=== PATIENT | female | born 1990 | race Caucasian/White ===

== ENCOUNTER 2022-01-15 17:40 | Observation (INO) | payer OTHER ==
[2022-01-15 18:33] LABS: HGB 10.2 gm/dL (11.4-16.0); MCH 27.2 pg (25.0-35.0); MCHC 31.9 g/dL (31.0-37.0); MCV 85.2 fL (80.0-100.0); Mean Platelet Volume 7.7; Platelet Count 400 k/uL (150-450); RBC 3.76 m/uL (3.80-5.40); RDW 13.5 % (11.5-15.5); WBC 15.5 k/uL (3.8-10.6)
[2022-01-15 18:38] LABS: ALT 14 U/L (4-34); AST 21 U/L (14-36); African American GFR (CKD) >90 (>60 ml/min/1.73 sqM); Albumin 3.5 g/dL (3.5-5.0); Alkaline Phosphatase 180 U/L (38-126); Anion Gap 14 mmol/L; Blood Urea Nitrogen 3 mg/dL (7-17); Calcium 8.5 mg/dL (8.4-10.2); Carbon Dioxide 17 mmol/L (22-30); Chloride 101 mmol/L (98-107); Glucose 117 mg/dL (74-99); Non-African American GFR(CKD) >90 (>60 ml/min/1.73 sqM); Potassium 2.9 mmol/L (3.5-5.1); Sodium 132 mmol/L (137-145); Total Bilirubin 0.3 mg/dL (0.2-1.3); Total Protein 6.6 g/dL (6.3-8.2)
--- NOTE | 2022-01-15 19:01 | P.HPOB ---
History of Present Illness H&P Date: 01/15/22 Chief Complaint: Left flank pain. This patient is a 31-year-old 7 para 1 female estimated date of confinement 02/28/2022 estimated gestational age 33-5/7 weeks who presents to triage with complaints of sudden onset of left flank pain earlier today. Patient denies any vaginal bleeding or leaking of fluid. She denies any regular contractions. Patient was just in the office approximately 2 days ago and seen Dr. Hunt at that time was only complaining of headaches. Urinalysis looked negative Sunday. Patient's also complicated by tobacco use/vaping. It appears that she transferred to Dr. Hunt at [address] Baca. Review of Systems Genitourinary: Reports as per HPI, Reports pelvic pain, Reports Menstruation: Reports amenorrhea Past Medical History Additional Past Medical History / Comment(s): Patient's had 1 term vaginal delivery and approximately 5 spontaneous abortions. History of Any Multi-Drug Resistant Organisms: None Reported Additional Past Surgical History / Comment(s): Oral surgery. Dilation and curettage. Past Psychological History: No Psychological Hx Reported Smoking Status: Current some day smoker, Vaper Past Alcohol Use History: None Reported Medications and Allergies Home Medications Medication Instructions Recorded Confirmed Type Famotidine 20 mg PO DAILY 01/15/22 01/15/22 History Pantoprazole Sodium [Protonix] 20 mg PO BID 01/15/22 01/15/22 History Vit No.179/Iron/Folic 1 each PO DAILY 01/15/22 01/15/22 History [ Tablet] Allergies Allergy/AdvReac Type Severity Reaction Status Date / Time No Known Allergies Allergy Verified 01/15/22 17:59 Exam Intake and Output 01/15/22 01/15/22 01/15/22 06:59 14:59 22:59 Other: Weight 85.729 kg - OBG Physical Exam Abdomen: bowel sounds normal, no diffuse tenderness, no bruit present, no guarding noted, no hepatomegaly, no splenomegaly, no mass Vulva: both: normal Vagina: normal moisture, no discharge Cervix: no lesion (Cervix is 1 and thick per the RN.), no discharge Uterus: enlarged Results Result Diagrams: 01/15/22 17:50 01/15/22 17:50 Abnormal Lab Results - Last 24 Hours (Table) 01/15/22 01/15/22 Range/Units 17:50 17:50 WBC 15.5 H (3.8-10.6) k/uL RBC 3.76 L (3.80-5.40) m/uL Hgb 10.2 L (11.4-16.0) gm/dL Hct 32.0 L (34.0-46.0) % Sodium 132 L (137-145) mmol/L Potassium 2.9 L (3.5-5.1) mmol/L Carbon Dioxide 17 L (22-30) mmol/L BUN 3 L (7-17) mg/dL Glucose 117 H (74-99) mg/dL Alkaline Phosphatase 180 H (38-126) U/L Assessment and Plan Assessment: This is a 31-year-old 7 para 1 female 33-5/7 weeks' gestation with fairly acute onset of left-sided flank pain. heart tones are reassuring and she is not having regular contractions therefore this is most consistent with some type of kidney etiology, renal stones. Patient appears to be quite uncomfortable per the RN therefore they're going to admit her for IV hydration, IV pain control, check a CBC and metabolic panel, complete obstetrical ultrasou nd, and renal ultrasound. (1) 33 weeks gestation of Current Visit: Yes Status: Acute Code(s): Z3A.33 - 33 WEEKS GESTATION OF SNOMED Code(s): 33465914 (2) Flank pain Current Visit: Yes Status: Acute Code(s): R10.9 - UNSPECIFIED ABDOMINAL PAIN SNOMED Code(s): 443693630
[2022-01-15 19:03] LABS: Appearance,Urine Cloudy (Clear); Bacteria,Urine Moderate /hpf; Bilirubin,Urine Negative (Negative); Blood,Urine Small (Negative); Color,Urine Yellow; Glucose,Urine (UA) Trace (Negative); Ketones,Urine Negative (Negative); Leukocyte Esterase,Urine Moderate (Negative); Mucus,Urine Many /hpf; Nitrite,Urine Negative (Negative); PH, Urine 6.5 (5.0-8.0); Protein,Urine 3+ (Negative); RBC,Urine 44 /hpf (0-5); Specific Gravity,Urine 1.023 (1.001-1.035); Squamous Epithelial Cell,Urine 3 /hpf (0-4); Urobilinogen,Urine <2.0 mg/dL (<2.0); WBC,Urine 25 /hpf (0-5)
[2022-01-15] MEDS: LACTATED RINGERS 1,000 ML IV SCH ×3 (19:27→20:00)
--- NOTE | 2022-01-15 19:54 | US ---
EXAMINATION TYPE: US kidneys/renal and bladder DATE OF EXAM: 01/15/2022 COMPARISON: NONE CLINICAL HISTORY: upper abd discomfort with pain radiating around th. Upper left abdominal discomfort , radiates to the left side- back. Pain since 1 pm today. Hx frequent UTIs. *Patient is 33 5/7 weeks . EXAM MEASUREMENTS: Right Kidney: 10.8 x 5.5 x 6.0 cm Left Kidney: 9.1 x 4.4 4.8 cm Exam is limited due to gas. Right Kidney: No hydronephrosis or masses seen Left Kidney: Contour appears irregular. Limited visibility of borders. Bladder: Undistended, unable to evaluate. Bilateral Jets seen: No IMPRESSION: No evidence of renal mass or obstruction. Urinary bladder not seen.
--- NOTE | 2022-01-15 19:57 | US ---
EXAMINATION TYPE: US OB >= 14 wk fetus DATE OF EXAM: 01/15/2022 COMPARISON: None CLINICAL HISTORY: c/o upper abd discomfort that radiates to the back Left sided pain/back pain since 1 pm. Hx 4 miscarriages. . TECHNIQUE: Transabdominal (TA) GESTATIONAL AGE / DATING Physician Established: (33 weeks/5 days) EDC: 02/28/2022 Dates by LMP: Unknown Dates by First Scan: This is first scan here. Dates by Current Scan: (32 weeks/4 days) EDC: 03/08/2022 SURVEY IUP: Single PLACENTA: Posterior-Fundal PREVIA: No Previa seen CYN: 19.9 cm. Measures above hospital standards: 10-18 cm. Patient requested to end exam before a second measurement could be performed. CERVICAL LENGTH (transabdominal: norm > 3.0cm): Unable to visualize. No transvaginal cervical length needed per Dr. Hinkle. BIOMETRY PRESENTATION: Vertex BPD: 8.21 cm 33 weeks / 0 days HC: 29.53 cm 32 weeks / 4 days AC: 29.64 cm 33 weeks / 4 days FL: 6.33 cm 32 weeks / 5 days ESTIMATED WEIGHT IN GRAMS: 2144 grams ESTIMATED WEIGHT IN LBS/OZ: 4 lbs. 12 oz. WEIGHT PERCENTAGE BASED ON ESTABLISHED DATES: 27.9% HC/AC: 1.00 Normal FL/AC: 21.37 Normal HEART RATE: 140 bpm RHYTHM: Normal IMPRESSION: The ultrasound gestational age is 32 weeks and 4 days. The NIMESH is 03/08/2022. No complicating process seen.
[2022-01-15] MEDS: BUTORPHANOL 1 MG/ML 1 ML VIAL IV PRN ×2 (20:01→22:54)
[2022-01-15] MEDS: ONDANSETRON 4 MG/2 ML VIAL IVP PRN (20:25)
[2022-01-15] MEDS: FAMOTIDINE 20 MG TAB PO SCH (20:58)
[2022-01-15] MEDS: POTASSIUM CHLORIDE ER 20 MEQ TAB.ER PO SCH (20:58)
[2022-01-16] MEDS: BUTORPHANOL 1 MG/ML 1 ML VIAL IV PRN ×8 (01:49→23:32)
[2022-01-16] MEDS: ONDANSETRON 4 MG/2 ML VIAL IVP PRN ×3 (02:11→22:28)
[2022-01-16] MEDS: LACTATED RINGERS 1,000 ML IV SCH ×4 (04:19→20:02)
[2022-01-16 06:41] LABS: Basophils % (A) 0 %; Eosinophils % (A) 0 %; HCT 29.9 % (34.0-46.0); HGB 9.8 gm/dL (11.4-16.0); Lymphocytes # (A) 2.1 k/uL (1.0-4.8); Lymphocytes % (A) 15 %; MCH 27.7 pg (25.0-35.0); MCHC 32.7 g/dL (31.0-37.0); MCV 84.6 fL (80.0-100.0); Mean Platelet Volume 7.4; Monocytes # (A) 0.6 k/uL (0-1.0); Monocytes % (A) 5 %; Neutrophils # (A) 10.9 k/uL (1.3-7.7); Neutrophils % (A) 79 %; Platelet Count 369 k/uL (150-450); RBC 3.53 m/uL (3.80-5.40); RDW 13.4 % (11.5-15.5); WBC 13.8 k/uL (3.8-10.6)
[2022-01-16 07:01] LABS: ALT 12 U/L (4-34); AST 16 U/L (14-36); African American GFR (CKD) >90 (>60 ml/min/1.73 sqM); Albumin 3.1 g/dL (3.5-5.0); Alkaline Phosphatase 161 U/L (38-126); Anion Gap 9 mmol/L; Blood Urea Nitrogen 4 mg/dL (7-17); Calcium 8.1 mg/dL (8.4-10.2); Carbon Dioxide 25 mmol/L (22-30); Chloride 101 mmol/L (98-107); Glucose 129 mg/dL (74-99); Non-African American GFR(CKD) >90 (>60 ml/min/1.73 sqM); Potassium 3.3 mmol/L (3.5-5.1); Sodium 135 mmol/L (137-145); Total Bilirubin 0.3 mg/dL (0.2-1.3); Total Protein 5.8 g/dL (6.3-8.2)
--- NOTE | 2022-01-16 08:21 | P.PN ---
Progress Note - Text Progress Note Date: 01/16/22 31 year old at 33 weeks 6 days complaining of left flank pain and an elevated wbc. NST reactive no contractions afebrile PT has had N/V most the night and heart burn. will resume home meds of protonix today, replace potassium and give IV fluids and IV antibiotics.
[2022-01-16] MEDS ORDERED: HYDROcodone/APAP 5-325MG 1 EACH TAB PO PRN (09:02)
[2022-01-16] MEDS: PANTOPRAZOLE 40 MG TABLET PO SCH ×2 (09:08→20:01)
[2022-01-16] MEDS ORDERED: FAMOTIDINE 20 MG/2 ML VIAL IV ONE ×2 (12:00→12:15)
[2022-01-16] MEDS ORDERED: MAGNESIUM HYDROXIDE 2,400 MG/10 ML CUP PO PRN (12:16)
[2022-01-16] MEDS: POTASSIUM CHLORIDE 20 MEQ in WATER FOR INJECTION 1 100ML.BAG IVPB SCH (12:47)
[2022-01-16] MEDS: METOCLOPRAMIDE 5 MG/ML 2 ML VIAL IVP SCH ×2 (12:48→19:11)
[2022-01-16] MEDS: POTASSIUM CHLORIDE ER 20 MEQ TAB.ER PO SCH (14:50)
[2022-01-16] MEDS: FAMOTIDINE 20 MG TAB PO SCH (17:41)
[2022-01-16] MEDS ORDERED: FAMOTIDINE 20 MG/2 ML VIAL IV SCH (21:00)
[2022-01-17] MEDS: POTASSIUM CHLORIDE 20 MEQ in WATER FOR INJECTION 1 100ML.BAG IVPB SCH ×2 (01:13→13:10)
[2022-01-17] MEDS: METOCLOPRAMIDE 5 MG/ML 2 ML VIAL IVP SCH ×3 (03:02→09:55)
[2022-01-17] MEDS: BUTORPHANOL 1 MG/ML 1 ML VIAL IV PRN ×2 (03:03→06:42)
[2022-01-17] MEDS: LACTATED RINGERS 1,000 ML IV SCH ×2 (06:41→07:58)
[2022-01-17] MEDS: ONDANSETRON 4 MG/2 ML VIAL IVP PRN (06:41)
[2022-01-17] MEDS: PANTOPRAZOLE 40 MG TABLET PO SCH (08:15)
--- NOTE | 2022-01-17 08:16 | P.PN ---
Progress Note - Text Progress Note Date: 01/17/22 31 yo G 6 P1 at 34 weeks with left flank pain. Pain is still present but she has not tried oral pain medications yet. patient is now tolerating clears. She has not vomited since last night. Encouraged her to try oral pain medications. If she cannot tolerate them, I will give her IV 04 minutes. She thinks her pain now has to do with some musculoskeletal irritation as well as the pyelonephritis. Microbiology came back with gram-negative bacilli. She is on IV cefazolin which should cover this. I will check on her again later today to see if she is tolerating a regular diet. If this is the case she may be able to go home later today. CBC and repeat potassium pending
[2022-01-17 09:04] LABS: Basophils % (A) 0 %; Eosinophils % (A) 0 %; HCT 28.4 % (34.0-46.0); HGB 9.2 gm/dL (11.4-16.0); Hypochromasia Slight; Lymphocytes # (A) 1.9 k/uL (1.0-4.8); Lymphocytes % (A) 15 %; MCH 27.8 pg (25.0-35.0); MCHC 32.4 g/dL (31.0-37.0); Mean Platelet Volume 7.4; Monocytes # (A) 0.7 k/uL (0-1.0); Monocytes % (A) 6 %; Neutrophils # (A) 9.7 k/uL (1.3-7.7); Neutrophils % (A) 78 %; Platelet Count 318 k/uL (150-450); RDW 13.4 % (11.5-15.5); WBC 12.5 k/uL (3.8-10.6)
[2022-01-17 09:15] LABS: Potassium 3.4 mmol/L (3.5-5.1)
[2022-01-17] MEDS ORDERED: ACETAMINOPHEN TAB 500 MG TAB PO PRN (09:45)
[2022-01-17 09:51] VITALS: BP 120/67; PULSE 98; RESP 18; TEMP 96.6
--- NOTE | 2022-01-17 12:33 | P.DS ---
Providers Date of admission: 01/15/22 18:53 Expected date of discharge: 01/17/22 Attending physician: Valeria Hunt Primary care physician: Lewis Hinkle - Discharge Diagnosis(es) (1) 34 weeks gestation of Current Visit: Yes Status: Acute (2) Pyelonephritis Current Visit: Yes Status: Acute Hospital Course: She presented with horrible left upper quadrant pain and left flank pain. She is admitted for pain control and IV antibiotics. She did have a white blood cell count but no fever. Urine culture grew out gram-negative bacilli. She was also unable to tolerate food for over 24 hours while she was here. We did treat the nausea, IV antibiotics for the pyelonephritis that was found in her urine, IV fluids and NSTs. She'll be discharged home now after over 24 hours of IV antibiotics. Her potassium has been replaced, and her white blood cell count is decreasing. She remains afebrile and will go home with oral antibiotics and some pain medication. She is to follow up with me in about a week and a half. Plan - Discharge Summary New Discharge Prescriptions: New RX: HYDROcodone/APAP 5-325MG [Bradley 5-325] 1 each PO Q4HR PRN #18 tab PRN Reason: Pain Cephalexin [Keflex] 500 mg PO Q6HR 5 Days #20 cap No Action RX: Famotidine 20 mg PO DAILY Vit No.179/Iron/Folic [ Tablet] 1 each PO DAILY Pantoprazole Sodium [Protonix] 20 mg PO BID Discharge Medication List Pantoprazole Sodium [Protonix] 20 mg PO BID 01/15/22 [History] Vit No.179/Iron/Folic [ Tablet] 1 each PO DAILY 01/15/22 [History] RX: Famotidine 20 mg PO DAILY 01/15/22 [History] Cephalexin [Keflex] 500 mg PO Q6HR 5 Days #20 cap 01/17/22 [Rx] RX: HYDROcodone/APAP 5-325MG [Bradley 5-325] 1 each PO Q4HR PRN #18 tab 01/17/22 [Rx] Follow up Appointment(s)/Referral(s): Valeria Hunt DO [Doctor of Osteopathic Medicine] - 2 Weeks Discharge Disposition: HOME SELF-CARE
== END 2022-01-17 13:08 | disposition home or self-care (01) ==
LOC: FBPOP 17:40 → 4FBP 18:53
PROVIDERS: ADMIT Obstetrics & Gynecology; ATTEND Obstetrics & Gynecology
DX: O23.03 Infections of kidney in pregnancy, third trimester (principal); O99.333 Smoking (tobacco) complicating pregnancy, third trimester; N12 Tubulo-interstitial nephritis, not specified as acute or chronic; F17.290 Nicotine dependence, other tobacco product, uncomplicated; Z87.440 Personal history of urinary (tract) infections; Z3A.32 32 weeks gestation of pregnancy; Z79.899 Other long term (current) drug therapy
CPT/HCPCS: 96376 ×3; 96361 ×2; 96365 ×2; 96366 ×2; 96367 ×2; 96375 ×2; 59025; 96360; 80051; 80053 ×2; 85025 ×2; 85027; 81001; 87086; 87077; 87186; 76805; 76770; G0378 ×3; G0463; J2765 ×2; J0595 ×3; J3480 ×2; J0690 ×3; J2405 ×3; 99213

== ENCOUNTER 2022-02-12 22:08 | Inpatient (IN) | payer BC, OTHER ==
[2022-02-12] MEDS ORDERED: CARBOPROST TROMETHAMINE 250 MCG/ML 1 ML AMP IM PRN (22:40)
[2022-02-12] MEDS ORDERED: TERBUTALINE 1 MG/ML VIAL SQ PRN (22:40)
[2022-02-12] MEDS ORDERED: METHYLERGONOVINE 0.2 MG/ML 1 ML AMP IM PRN (22:40)
[2022-02-12] MEDS ORDERED: OXYTOCIN 10 UNIT/ML 1 ML VIAL IM PRN (22:40)
[2022-02-12] MEDS: LACTATED RINGERS 1,000 ML IV SCH (22:40)
[2022-02-12] MEDS ORDERED: LIDOCAINE 0.5% (PF) 5 MG/ML (50 ML SDV) SQ PRN (22:40)
[2022-02-12 22:55] LABS: Basophils % (A) 0 %; Eosinophils % (A) 0 %; HCT 29.3 % (34.0-46.0); HGB 9.8 gm/dL (11.4-16.0); Hypochromasia Slight; Lymphocytes # (A) 2.8 k/uL (1.0-4.8); Lymphocytes % (A) 23 %; MCH 27.3 pg (25.0-35.0); MCHC 33.4 g/dL (31.0-37.0); MCV 81.9 fL (80.0-100.0); Mean Platelet Volume 8.4; Monocytes # (A) 0.5 k/uL (0-1.0); Monocytes % (A) 4 %; Neutrophils # (A) 8.2 k/uL (1.3-7.7); Neutrophils % (A) 70 %; Platelet Count 280 k/uL (150-450); RBC 3.57 m/uL (3.80-5.40); RDW 14.5 % (11.5-15.5); WBC 11.8 k/uL (3.8-10.6)
[2022-02-12] MEDS ORDERED: SODIUM CHLORIDE 0.9% 100 ML BAG ONE (23:40)
[2022-02-12] MEDS ORDERED: fentaNYL (PF) 50 MCG/ML 5 ML AMP ONE (23:40)
[2022-02-12] MEDS ORDERED: ROPIVACAINE 5 MG/ML 20 ML AMPULE ONE (23:40)
[2022-02-13] MEDS ORDERED: OXYTOCIN 30 UNITS/500 ML NS 30 UNIT in SALINE 1 500ML.BAG IV SCH ×2 (01:00→06:29)
--- NOTE | 2022-02-13 01:22 | P.HPOB ---
History of Present Illness H&P Date: 02/13/22 Chief Complaint: Spontaneous rupture of membranes This is a 31-year-old female 7 para 1 with an estimated date of confinement of 02/28/2022, estimated gestational age of 37-4/7 weeks, who presented to labor and delivery with complaints of contractions that began shor tly after spontaneous rupture of membranes at approximately 9:30 PM tonight. Her care has been with Dr. Hunt and prior to that with Dr. Mary. She states her has been uncomplicated other than a few weeks ago she had a bad E. coli infection and was hospitalized for about 3 days. labs: Group B streptococcus-negative One hour Glucola-141; three-hour Glucola-within normal limits Blood type-O+ Antibody screen-negative Hemoglobin-13 RPR-nonreactive Hepatitis B surface antigen-negative Rubella-immune Hepatitis C-negative Random glucose-81 Maternity 21-normal Obstetrical history: . History of 1 vaginal delivery at term. 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 Review of Systems Constitutional: Denies chills, Denies fever Eyes: denies blurred vision, denies pain Ears, nose, mouth and throat: Denies headache, Denies sore throat Cardiovascular: Denies chest pain, Denies shortness of breath Respiratory: Denies cough Gastrointestinal: Reports abdominal pain (Contractions), Reports heartburn Genitourinary: Reports pelvic pain, Reports Musculoskeletal: Reports low back pain Integumentary: Denies pruritus, Denies rash Neurological: Denies numbness, Denies weakness Psychiatric: Denies anxiety, Denies depression Past Medical History Past Medical History: GERD/Reflux History of Any Multi-Drug Resistant Organisms: None Reported Additional Past Surgical History / Comment(s): Oral surgery. Dilation and curettage. Past Anesthesia/Blood Transfusion Reactions: No Reported Reaction Past Psychological History: No Psychological Hx Reported Smoking Status: Current some day smoker, Vaper Past Alcohol Use History: None Reported Past Drug Use History: None Reported - Past Family History Mother Family Medical History: Cancer (Breast cancer) Father Family Medical History: Hypertension, Myocardial Infarction ([place]) Medications and Allergies Home Medications Medication Instructions Recorded Confirmed Type Famotidine 20 mg PO DAILY 01/15/22 01/15/22 History Pantoprazole Sodium [Protonix] 20 mg PO BID 01/15/22 01/15/22 History Vit No.179/Iron/Folic 1 each PO DAILY 01/15/22 01/15/22 History [ Tablet] Allergies Allergy/AdvReac Type Severity Reaction Status Date / Time tomato Allergy Rash/Hives Verified 02/12/22 22:20 Exam Osteopathic Statement: *. No significant issues noted on an osteopathic structural exam other than those noted in the History and Physical/Consult. Intake and Output 02/12/22 02/12/22 02/13/22 14:59 22:59 06:59 Other: Weight 87.543 kg HEENT: Within normal limits Heart: Regular rate and rhythm Lungs: Clear to auscultation bilaterally Abdomen: Cervix: On admission was 4-1/2 cm/80%/-2 station with positive amnisure with clear fluid noted. heart tones: Category 1 Contractions: Every 2 minutes Extremities: Negative Homans Results Result Diagrams: 02/12/22 22:40 Abnormal Lab Results - Last 24 Hours (Table) 02/12/22 Range/Units 22:40 WBC 11.8 H (3.8-10.6) k/uL RBC 3.57 L (3.80-5.40) m/uL Hgb 9.8 L (11.4-16.0) gm/dL Hct 29.3 L (34.0-46.0) % Neutrophils # 8.2 H (1.3-7.7) k/uL Assessment and Plan (1) 37 weeks gestation of Current Visit: Yes Status: Acute Code(s): Z3A.37 - 37 WEEKS GESTATION OF SNOMED Code(s): 32000095 Plan: Admission for early active labor. Expectant management. Epidural anesthesia if desired. Oxytocin augmentation of labor if necessary.
--- NOTE | 2022-02-13 03:45 | P.PROBDLV ---
Vaginal Delivery Note - . Vaginal Delivery Note: The patient progressed to complete dilation after oxytocin augmentation of labor and epidural anesthesia. Once reaching complete, she pushed for a couple pushes and infant's head came to a crown. With one further push, the infant's head delivered across the perineum followed by the anterior shoulder and the remainder the was placed on mother's abdomen. Cord was clamped and cut and was taken to warmer for evaluation. A viable female infant is noted with scores of 8 at 1 minute and 9 at 5 minutes and infant weight of 6 pounds 7.7 ounces. Placenta delivered shortly thereafter, intact, with a three- vessel cord. Uterus contracted fairly well after oxytocin was given and uterine massage was carried out. Inspection of the perineum revealed a small first- degree perineal laceration. This area was anesthetized with 1% lidocaine and then sutured with 3-0 Vicryl suture in a running locked fashion. Estimated blood loss is approximately 150 mL's. Both mother and infant are in stable condition.
[2022-02-13] MEDS ORDERED: BENZOCAINE/MENTHOL SPRAY 1 GM/SPRAY AEROSOL TOPICAL PRN ×2 (04:35→06:29)
[2022-02-13] MEDS: LACTATED RINGERS 1,000 ML IV SCH (06:15)
[2022-02-13] MEDS ORDERED: SIMETHICONE 80 MG CHEWABLE PO PRN (06:29)
[2022-02-13] MEDS ORDERED: ACETAMINOPHEN TAB 325 MG TAB PO PRN (06:29)
[2022-02-13] MEDS ORDERED: LANOLIN CREAM 5 GM TUBE TOPICAL PRN (06:29)
[2022-02-13] MEDS ORDERED: diphenhydrAMINE 25 MG CAP PO PRN (06:29)
[2022-02-13] MEDS ORDERED: diphenhydrAMINE 50 MG/ML 1 ML VIAL IVP PRN ×2 (06:29)
[2022-02-13] MEDS ORDERED: diphenhydrAMINE 50 MG CAP PO PRN (06:29)
[2022-02-13] MEDS ORDERED: ZOLPIDEM 5 MG TAB PO PRN (06:29)
[2022-02-13] MEDS ORDERED: HYDROCORTISONE 2.5% RECTAL CREAM 30 GM TUBE RECTAL PRN (06:29)
[2022-02-13] MEDS: IBUPROFEN 600 MG TAB PO PRN ×3 (06:54→20:15)
[2022-02-13] MEDS: SENNOSIDES-DOCUSATE SODIUM 1 EACH TAB PO SCH (09:59)
[2022-02-13] MEDS: PANTOPRAZOLE 40 MG TABLET PO SCH (12:10)
[2022-02-13] MEDS: FAMOTIDINE 20 MG TAB PO SCH (12:10)
[2022-02-13] MEDS: PRENATAL VIT-IRON-FOLIC ACID 1 EACH TABLET PO SCH (12:14)
[2022-02-14] MEDS: SENNOSIDES-DOCUSATE SODIUM 1 EACH TAB PO SCH ×2 (03:51→08:05)
[2022-02-14] MEDS: IBUPROFEN 600 MG TAB PO PRN (03:52)
[2022-02-14 07:53] VITALS: BP 121/83; PULSE 74; RESP 16; TEMP 97.9
[2022-02-14] MEDS: PANTOPRAZOLE 40 MG TABLET PO SCH (08:05)
[2022-02-14] MEDS: FAMOTIDINE 20 MG TAB PO SCH (08:06)
[2022-02-14] MEDS: PRENATAL VIT-IRON-FOLIC ACID 1 EACH TABLET PO SCH (08:06)
--- NOTE | 2022-02-14 08:14 | P.DS ---
Providers Date of admission: 02/12/22 22:08 Expected date of discharge: 02/14/22 Attending physician: Valeria Hunt Primary care physician: Stated None - Discharge Diagnosis(es) (1) Normal vaginal delivery Current Visit: Yes Status: Acute Hospital Course: Patient presented in labor. She had Pitocin augmentation and underwent a normal vaginal delivery. course was uncomplicated. Denies nausea, vomiting, chest pain, shortness of breath or any calf pain. She'll be discharged home day #1 in stable condition to follow-up with me in 6 weeks. Plan - Discharge Summary New Discharge Prescriptions: New Ibuprofen [Motrin] 600 mg PO Q6HR PRN #30 tab PRN Reason: Mild Pain (Scale 1 To 3) No Action Famotidine 20 mg PO DAILY Vit No.179/Iron/Folic [ Tablet] 1 each PO DAILY Pantoprazole Sodium [Protonix] 20 mg PO BID Discharge Medication List Famotidine 20 mg PO DAILY 01/15/22 [History] Pantoprazole Sodium [Protonix] 20 mg PO BID 01/15/22 [History] Vit No.179/Iron/Folic [ Tablet] 1 each PO DAILY 01/15/22 [History] Ibuprofen [Motrin] 600 mg PO Q6HR PRN #30 tab 02/14/22 [Rx] Follow up Appointment(s)/Referral(s): Valeria Hunt DO [Doctor of Osteopathic Medicine] - 03/27/22 3:45 pm Discharge Disposition: HOME SELF-CARE
[2022-02-14 09:12] LABS: Basophils % (A) 0 %; Eosinophils % (A) 0 %; HGB 9.5 gm/dL (11.4-16.0); Hypochromasia Moderate; Lymphocytes # (A) 2.4 k/uL (1.0-4.8); Lymphocytes % (A) 20 %; MCH 27.8 pg (25.0-35.0); MCHC 32.9 g/dL (31.0-37.0); MCV 84.3 fL (80.0-100.0); Mean Platelet Volume 8.3; Monocytes # (A) 0.4 k/uL (0-1.0); Monocytes % (A) 3 %; Neutrophils # (A) 8.8 k/uL (1.3-7.7); Neutrophils % (A) 75 %; Platelet Count 245 k/uL (150-450); RBC 3.44 m/uL (3.80-5.40); RDW 14.3 % (11.5-15.5); WBC 11.6 k/uL (3.8-10.6)
--- NOTE | 2022-02-16 11:04 | P.MSEPDOC ---
Presenting Problems - Arrival Data Date of Arrival on Unit: 02/12/22 Time of Arrival on Unit: 22:08 Mode of Transport: Ambulatory - Complaint OB-Reason for Admission/Chief Complaint: Possible Onset of Labor, Rule Out SROM Comment: Patient arrived and stated that she thinks her water broke at 2130. Patient denies pain, contractions, no blood present. RN on assessment visualizes moderate amount clear fluid present. Patient denies any complications with . Medical History - Information : 7 Para: 1 Term: 1 : 0 Abortions: Spontaneous or Elective: 5 Number of Living Children: 1 - Gestational Age Gestational Age by NIMESH (wks/days): 37 Weeks and 6 Days - History Complications: Smoker Comment: Patient admits to vaping everyday. Review of Systems - Review of Systems Constitutional: No problems Breast: No problems ENT: No problems Cardiovascular: No problems Respiratory: No problems Gastrointestinal: No problems Genitourinary: No problems Musculoskeletal: No problems Neurological: No problems Skin: No problems Vital Signs - Temperature Temperature: 97.9 F Temperature Source: Oral - Pulse Brachial Pulse Rate: 74 Pulse Assessment Method: Automatic Cuff - Respirations Respiratory Rate: 16 Oxygen Delivery Method: Room Air O2 Sat by Pulse Oximetry: 98 - Blood Pressure Right Arm Blood Pressure: 121/83 Blood Pressure Mean: 95 Blood Pressure Source: Automatic Cuff Medical Screen Scoring - Cervical Exam Dilation (cm): 4.5 Effacement (%): 70 Station: -2 Membranes: Ruptured - Uterine Contractions Frequency From (mins): 2 Frequency To (mins): 5 Duration From (seconds): 30 Duration To (seconds): 80 Intensity: Absent Resting: Soft to palpation - Assessment - Baby A Baseline FHR: 130 Heart Rate - NICHD Category: Category I (Normal) NST: Reactive Physician Notification - Physician Notified Physician Notified Date: 02/12/22 Physician Notified Time: 22:38 Physician: Hortencia Casillas Order Received: Yes - Notification Comment Comment: RN spoke with Dr. Casillas via telephone at 2750 02/12/22 Dr. Casillas aware of patient history, FHR, contractions, positive amnisure, GBS status orders to admit patient and patient can have an epidural. or stadol IV. Call Dr. Casillas when patient is a cervical check of 6. Maternal Triage Index - Non-Urgent/Priority 4 Non-Urgent Priority 4: Yes Criteria Met for Priority 4: Patient arrived and stated that she thinks her water broke at 2130. Patient denies pain, contractions, no blood present. Patient denies sexual intercourse in the last 24 hours. RN on assessment visualizes moderate amount clear fluid present. Patient denies any complications with . Amnisure is positive checked by Kwadwo Reese RN and Melissa Hernandez RN. Patient is dialated to 4.5. Patient states that she can not feel contraction when she first arrived. Disposition - Disposition OB Disposition: Admit Discharge Date: 02/14/22 Discharge Time: 10:43 I agree with the RN Medical Screening Exam: Yes Case reviewed; plan agreed upon as documented in EMR&OBIX.: Yes Diagnosis: ENCOUNTER FOR FULL-TERM UNCOMPLICATED DELIVERY
== END 2022-02-14 10:43 | disposition home or self-care (01) | DRG 807 ==
LOC: 4FBP 22:08
PROVIDERS: ADMIT Obstetrics & Gynecology; ATTEND Obstetrics & Gynecology
PROC: 10E0XZZ Delivery of Products of Conception, External Approach (ICD-10-PCS; principal; 2022-02-13)
PROC: 0HQ9XZZ Repair Perineum Skin, External Approach (ICD-10-PCS; 2022-02-13)
PROC: 3E033VJ Introduction of Other Hormone into Peripheral Vein, Percutaneous Approach (ICD-10-PCS; 2022-02-13)
PROC: 4A0HXCZ Measurement of Products of Conception, Cardiac Rate, External Approach (ICD-10-PCS; 2022-02-13)
DX: O42.92 Full-term premature rupture of membranes, unspecified as to length of time between rupture and onset of labor (principal); Z37.0 Single live birth; O70.0 First degree perineal laceration during delivery; F17.290 Nicotine dependence, other tobacco product, uncomplicated; O99.334 Smoking (tobacco) complicating childbirth; Z3A.37 37 weeks gestation of pregnancy; Z79.899 Other long term (current) drug therapy; Z80.3 Family history of malignant neoplasm of breast; Z91.018 Allergy to other foods
CPT/HCPCS: 59025; 84112; 85025; 86850; 86900; 86901; 99213

== ENCOUNTER 2022-08-22 17:08 | Emergency (ER) | payer OTHER ==
[2022-08-22 17:38] VITALS: TEMP 98.2
[2022-08-22 20:20] LABS: Basophils % (A) 0 %; Eosinophils % (A) 0 %; HCT 41.4 % (34.0-46.0); Lymphocytes # (A) 3.1 k/uL (1.0-4.8); Lymphocytes % (A) 26 %; MCH 28.6 pg (25.0-35.0); MCHC 33.8 g/dL (31.0-37.0); MCV 84.6 fL (80.0-100.0); Mean Platelet Volume 7.6; Monocytes # (A) 0.5 k/uL (0-1.0); Monocytes % (A) 4 %; Neutrophils # (A) 8.1 k/uL (1.3-7.7); Neutrophils % (A) 68 %; Platelet Count 417 k/uL (150-450); RDW 13.9 % (11.5-15.5); WBC 11.9 k/uL (3.8-10.6)
[2022-08-22 20:39] LABS: ALT 27 U/L (4-34); African American GFR (CKD) >90 (>60 ml/min/1.73 sqM); Albumin 4.4 g/dL (3.5-5.0); Anion Gap 14 mmol/L; Blood Urea Nitrogen 8 mg/dL (7-17); Calcium 9.5 mg/dL (8.4-10.2); Carbon Dioxide 21 mmol/L (22-30); Chloride 105 mmol/L (98-107); Glucose 90 mg/dL (74-99); Non-African American GFR(CKD) >90 (>60 ml/min/1.73 sqM); Sodium 140 mmol/L (137-145); Total Bilirubin 0.4 mg/dL (0.2-1.3); Total Protein 7.8 g/dL (6.3-8.2)
[2022-08-22 20:53] LABS: HCG,Quantitative Serum 1272.5 mIU/mL
[2022-08-22 20:55] LABS: AST 28 U/L (14-36); Alkaline Phosphatase 121 U/L (38-126); Potassium 4.3 mmol/L (3.5-5.1)
--- NOTE | 2022-08-22 21:26 | US ---
EXAMINATION TYPE: Transabdominal DATE OF EXAM: 08/22/2022 9:13 PM COMPARISON: NONE CLINICAL INDICATION: Female, 31 years old with history of possible retained products; Pt states she h ad an US at an outside facility yesterday that showed demise. Today she started having heavy bl eeding with large clots. Pt states she was around 8 weeks pg. EXAM PERFORMED: Transvaginal (TV) and Transabdominal (TA) EXAM MEASUREMENTS: GESTATIONAL AGE / DATING Dates by First Scan: No previous this is first scan Dates by Current Scan for: No IUP seen at this time MATERNAL ANATOMY Uterus: 10.7 x 6.6 x 5.7cm Right Ovary: 3.3 x 3.0 x 1.6cm Left Ovary: 3.2 x 1.8 x 1.6cm Post CDS / Adnexa: wnl Presence of free fluid: No Presence of corpus luteal cyst: No Presence of subchorionic bleed: No GESTATION / SURVEY CRL: Not seen MSD: Not seen IUP: No IUP seen at this time Beta HcG (if available): 1272 The endometrium is thickened with some vascularity. The cervix appears heterogeneous which is likely blood products. Heterogeneous anteverted uterus. No gestational sac, yolk sac, or pole is seen. Endometrium is abnormally thickened up to 27 mm with surrounding vascularity. No free fluid. Both ovaries are seen. No suspicious extraovarian adnexal masses. IMPRESSION: Ultrasound findings are suggestive of retained products of conception as detailed above a nd suspected clinically.
[2022-08-22] MEDS ORDERED: miSOPROStoL 200 MCG TAB PO STA (21:44)
--- NOTE | 2022-08-22 21:50 | ED ---
Female Urogenital HPI - General Chief complaint: Vaginal Bleeding Stated complaint: Vaginal Bleeding Time Seen by Provider: 08/22/22 18:37 Source: patient Mode of arrival: ambulatory Limitations: no limitations - History of Present Illness Initial comments: This patient is a 31-year-old woman who presents with complaint that she is having pelvic cramping pains and vaginal bleeding. The patient relates that she is , she had thought she may have been about 12 weeks but was seen at another facility having an ultrasound performed that was more suggestive of 8 weeks. The patient states that she was told based on the appearance of toni t ultrasound that she was suspected to be having a miscarriage. Patient comes in tonight because she passed large clot at home and is having bleeding. Patient denies diaphoresis, dyspnea, chest pain, palpitations. MD Complaint: vaginal bleeding, pelvic pain -: hour(s) Location: LLQ, RLQ Radiation: non-radiating Severity: moderate Quality: cramping Consistency: constant Improves with: none Worsens with: none Patient : Yes Associated Symptoms: vaginal bleeding - Related Data Home Medications Medication Instructions Recorded Confirmed Famotidine 20 mg PO DAILY 01/15/22 01/15/22 Pantoprazole Sodium [Protonix] 20 mg PO BID 01/15/22 01/15/22 Vit No.179/Iron/Folic 1 each PO DAILY 01/15/22 01/15/22 [ Tablet] Previous Rx's Medication Instructions Recorded Ibuprofen [Motrin] 600 mg PO Q6HR PRN #30 tab 02/14/22 Allergies Allergy/AdvReac Type Severity Reaction Status Date / Time tomato Allergy Rash/Hives Verified 08/22/22 17:38 Review of Systems ROS Statement: Those systems with pertinent positive or pertinent negative responses have been documented in the HPI. ROS Other: All systems not noted in ROS Statement are negative. Constitutional: Denies: fever, chills, weakness Respiratory: Denies: cough, dyspnea Cardiovascular: Denies: chest pain, palpitations, syncope Gastrointestinal: Reports: as per HPI, abdominal pain. Denies: nausea, vomiting, diarrhea, constipation Genitourinary: Reports: as per HPI, abnormal menses. Denies: dysuria, frequency Musculoskeletal: Denies: back pain Skin: Denies: rash Neurological: Denies: headache, weakness, numbness Past Medical History Past Medical History: GERD/Reflux Additional Past Medical History / Comment(s): Patient's had 1 term vaginal delivery and approximately 5 spontaneous abortions. History of Any Multi-Drug Resistant Organisms: None Reported Additional Past Surgical History / Comment(s): Oral surgery. Dilation and curettage. Past Anesthesia/Blood Transfusion Reactions: No Reported Reaction Past Psychological History: No Psychological Hx Reported Smoking Status: Current every day smoker, Vaper Past Alcohol Use History: None Reported Past Drug Use History: None Reported - Past Family History Mother Family Medical History: Cancer (Breast cancer) Father Family Medical History: Hypertension, Myocardial Infarction ([place]) General Exam Limitations: no limitations General appearance: alert, in no apparent distress Head exam: Present: atraumatic, normocephalic Eye exam: Present: normal appearance. Absent: scleral icterus, conjunctival injection Neck exam: Present: normal inspection Respiratory exam: Present: normal lung sounds bilaterally. Absent: respiratory distress, wheezes, rales, rhonchi, stridor Cardiovascular Exam: Present: regular rate, normal rhythm, normal heart sounds. Absent: systolic murmur, diastolic murmur, rubs, gallop GI/Abdominal exam: Present: soft. Absent: distended, tenderness, guarding, rebound, rigid, mass, pulsatile mass, hernia Extremities exam: Present: normal inspection, normal capillary refill. Absent: pedal edema, calf tenderness Back exam: Present: normal inspection. Absent: CVA tenderness (R), CVA tenderne ss (L) Neurological exam: Present: alert Skin exam: Present: warm, dry, intact, normal color. Absent: rash Course Vital Signs 08/22/22 08/22/22 17:36 22:00 Temperature 98.2 F Pulse Rate 98 88 Respiratory 20 16 Rate Blood Pressure 109/76 109/71 O2 Sat by Pulse 99 99 Oximetry Medical Decision Making - Medical Decision Making This patient is a 31-year-old woman presenting for vaginal bleeding and pelvic cramping. History and physical as well as studies are consistent with miscarriage in process. The ultrasound does show what appear to be some products of conception that still need to pass. The case is discussed with Dr Jo who is the tandem mill operator lead generation marketing manager [employer]. She states that there are 2 options for treating at this point, one would be to give the patient Cytotec 800 g to take and let her go home overnight with expectation she will pass the remainder the products of conception. The other option would be to admit the patient for observation on the OB floor, with further management there. I discussed these options with the patient who states that she would like to take the Cytotec and then she will go home. She does understand she needs to return should there be any increase in pain or bleeding, fevers or chills, any systemic symptoms including but not limited to palpitations, chest pain, dyspnea, diaphoresis, lightheadedness or syncope. Appropriate further care and follow-up discussed. Was pt. sent in by a medical professional or institution (, PA, PSYCHIATRIC CNS, urgent care, hospital, or prison...) When possible be specific @ -[No] Did you speak to anyone other than the patient for history (EMS, parent, family, police, friend...)? What history was obtained from this source @ -[No] Did you review nursing and triage notes (agree or disagree)? Why? @ -[I reviewed and agree with nursing and triage notes] Were old charts reviewed (outside hosp., previous admission, EMS record, old EKG, old radiological studies, urgent care reports/EKG's, prison records)? Report findings @ -[No old charts were reviewed] Differential Diagnosis (chest pain, altered mental status, abdominal pain women, abdominal pain men, vaginal bleeding, weakness, fever, dyspnea, syncope, headache, dizziness, GI bleed, back pain, seizure, CVA, palpatations, mental health, musculoskeletal)? @ -[Differential diagnosis for this patient's vaginal bleeding includes miscarriage, normal implantation of a fertilized ovum into the endometrial lining, ectopic , and subchorionic hemorrhage, among other conditions EKG interpreted by me (3pts min.). @ -[ X-rays interpreted by me (1pt min.). @ -[None done] CT interpreted by me (1pt min.). @ -[None done] U/S interpreted by me (1pt. min.). @ -[None done] What testing was considered but not performed or refused? (CT, X-rays, U/S, labs)? Why? @ -[None] What meds were considered but not given or refused? Why? @ -[None] Did you discuss the management of the patient with other professionals (professionals i.e. , PA, PSYCHIATRIC CNS, lab, RT, psych nurse, 7th grade social studies teacher, nail expert, teacher, physics technical officer, case loader operator)? Give summary @ -[No] Was smoking cessation discussed for >3mins.? @ -[No] Was critical care preformed (if so, how long)? @ -[No] Were there social determinants of health that impacted care today? How? (Homelessness, low income, unemployed, alcoholism, drug addiction, transportation, low edu. Level, literacy, decrease access to med. care, mcc, rehab)? @ -[No] Was there de-escalation of care discussed even if they declined (Discuss DNR or withdrawal of care, Hospice)? DNR status @ -[No] What co-morbidities impacted this encounter? (DM, HTN, Smoking, COPD, CAD, Cancer, CVA, ARF, Chemo, Hep., AIDS, mental health diagnosis, sleep apnea, morbid obesity)? @ -[None] Was patient admitted / discharged? Hospital course, mention meds given and route, prescriptions, significant lab abnormalities, going to OR and other pertinent info. @ -[As above, discharged Undiagnosed new problem with uncertain prognosis? @ -[No] Drug Therapy requiring intensive monitoring for toxicity (Heparin, Nitro, Insulin, Cardizem)? @ -[No] Were any procedures done? @ -[No] Diagnosis/symptom? @ -[Incomplete miscarriage Acute, or Chronic, or Acute on Chronic? @ -[Acute Uncomplicated (without systemic symptoms) or Complicated (systemic symptoms)? @ -[default] Side effects of treatment? @ -[No] Exacerbation, Progression, or Severe Exacerbation? @ -[No] Poses a threat to life or bodily function? How? (Chest pain, [place], [place], pneumonia, PE, COPD, DKA, ARF, appy, cholecystitis, CVA, Diverticulitis, Homicidal, Suicidal, threat to staff... and all critical care pts) @ -[No] - Lab Data Result diagrams: 08/22/22 19:57 08/22/22 19:57 Lab Results 08/22/22 08/22/22 08/22/22 Range/Units 19:57 19:57 19:57 WBC 11.9 H (3.8-10.6) k/uL RBC 4.90 (3.80-5.40) m/uL Hgb 14.0 (11.4-16.0) gm/dL Hct 41.4 (34.0-46.0) % MCV 84.6 (80.0-100.0) fL MCH 28.6 (25.0-35.0) pg MCHC 33.8 (31.0-37.0) g/dL RDW 13.9 (11.5-15.5) % Plt Count 417 (150-450) k/uL MPV 7.6 Neutrophils % 68 % Lymphocytes % 26 % Monocytes % 4 % Eosinophils % 0 % Basophils % 0 % Neutrophils # 8.1 H (1.3-7.7) k/uL Lymphocytes # 3.1 (1.0-4.8) k/uL Monocytes # 0.5 (0-1.0) k/uL Eosinophils # 0.0 (0-0.7) k/uL Basophils # 0.0 (0-0.2) k/uL Sodium 140 (137-145) mmol/L Potassium 4.3 (3.5-5.1) mmol/L Chloride 105 (98-107) mmol/L Carbon Dioxide 21 L (22-30) mmol/L Anion Gap 14 mmol/L BUN 8 (7-17) mg/dL Creatinine 0.70 (0.52-1.04) mg/dL Est GFR (CKD-EPI)AfAm >90 (>60 ml/min/1.73 sqM) Est GFR (CKD-EPI)NonAf >90 (>60 ml/min/1.73 sqM) Glucose 90 (74-99) mg/dL Calcium 9.5 (8.4-10.2) mg/dL Total Bilirubin 0.4 (0.2-1.3) mg/dL AST 28 (14-36) U/L ALT 27 (4-34) U/L Alkaline Phosphatase 121 (38-126) U/L Total Protein 7.8 (6.3-8.2) g/dL Albumin 4.4 (3.5-5.0) g/dL HCG, Quant 1272.5 mIU/mL Blood Type O Positive Blood Type Recheck O Pos Bld Type Recheck Status [facility] ONLY Disposition Clinical Impression: Incomplete Disposition: HOME SELF-CARE Condition: Good Instructions (If sedation given, give patient instructions): Miscarriage (ED) Is patient prescribed a controlled substance at d/c from ED?: No Referrals: None,Stated [Primary Care Provider] - 1-2 days Abigail Jung DO [Doctor of Osteopathic Medicine] - 1-2 days
[2022-08-22] MEDS ORDERED: MORPHINE SULFATE 4 MG/ML SYRINGE IV STA (22:04)
[2022-08-22 22:10] VITALS: BP 109/71; PULSE 88; RESP 16
== END 2022-08-22 23:05 | disposition home or self-care (01) ==
LOC: EC 17:08
DX: O03.4 Incomplete spontaneous abortion without complication (principal); O99.611 Diseases of the digestive system complicating pregnancy, first trimester; K21.9 Gastro-esophageal reflux disease without esophagitis; O99.331 Smoking (tobacco) complicating pregnancy, first trimester; F17.290 Nicotine dependence, other tobacco product, uncomplicated; Z79.899 Other long term (current) drug therapy; Z91.018 Allergy to other foods; Z3A.12 12 weeks gestation of pregnancy
CPT/HCPCS: 36415; 86900; 86901; 80053; 85025; 84702; 76801; 76817; 99284; 96374; J2270; S0191